=== PATIENT | male | born 1995 | race Hispanic/Latino ===

== ENCOUNTER 2018-09-23 08:57 | Emergency (ER) | payer SELFPAY ==
[2018-09-23 09:36] LABS: Absolute Monocytes 0.3 K/uL (0.1-1.3); Absolute Neutrophil 1.7 K/uL (1.8-8.0); Basophils % 0.4 % (0-1.3); Eosinophils % 2.8 % (0-4.4); Hematocrit 44.6 % (39.6-49.0); Lymphocytes % 48.3 % (15.3-44.8); MPV 10.2 fL (7.6-11.3); RBC Red Blood Cell Count 5.06 M/uL (4.33-5.43)
[2018-09-23 09:44] LABS: ALT/SGPT 21 U/L (12-78); AST/SGOT 20 U/L (15-37); Albumin 4.3 g/dL (3.4-5.0); Alkaline Phosphatase 74 U/L (45-117); BUN Blood Urea Nitrogen 15 mg/dL (7-18); Bicarbonate 27 mmol/L (21-32); Bilirubin Direct 0.1 mg/dL (0-0.2); Bilirubin Total 0.5 mg/dL (0.2-1.0); Glucose Level 99 mg/dL (74-106); Lipase 92 U/L (73-393); Potassium 4.1 mmol/L (3.5-5.1); Protein, Total 7.7 g/dL (6.4-8.2); Sodium Level 141 mmol/L (136-145)
--- NOTE | 2018-09-23 09:53 | RAD REPORT ---
EXAM DESCRIPTION: CT - Stone Protocol - 09/23/2018 9:35 am CLINICAL HISTORY: Right flank pain COMPARISON: None. TECHNIQUE: Axial 3 mm thick images were obtained without oral or IV contrast. The [id number] span s the entirety of the system including uppermost abdomen and lung bases. All CT scans are performed using dose optimization technique as appropriate and may include automated exposure control or mA/KV adjustment according to patient size. FINDINGS: No hydronephrosis is present and no obstructing ureteral calculi. No suspicious renal mass es. Isodense masses and pyelonephritis are not excluded on a stone protocol CT scan. No urinary bladd er suspicious finding. No significant adrenal finding. Phleboliths are seen along pelvic floor. Prost ate gland and seminal vesicles within normal limits. Imaged portions of the liver, spleen and pancreas show no suspicious findings on non-contrast imaging . No gallbladder or biliary tree abnormality identified. No suspicious bowel findings. Appendix is normal. Stool volume colon moderate. No hernia, mass or bulky lymphadenopathy noted. No free air, free fluid or inflammatory stranding. No significant bony abnormality. IMPRESSION: Negative CT stone protocol study. Isodense masses and pyelonephritis are not excluded on stone protocol technique.
--- NOTE | 2018-09-23 10:21 | EDPHYS ---
Physician Documentation [facility] Name: Tio Luis Age: 23 yrs Sex: Male : 1995 Arrival Date: 09/23/2018 Time: 09:01 Bed 17 Private MD: ED Physician Lokesh Jaffe HPI: 09/23 09:02 This 23 yrs old Male presents to ER via Ambulatory with complaints of jmm Abdominal Pain. 09:02 The patient presents with abdominal pain right flank. Onset: The symptoms/episode jmm began/occurred gradually, 2 month(s) ago. The symptoms do not radiate. Associated signs and symptoms: Pertinent negatives: nausea and vomiting, diarrhea. The symptoms are described as achy. This is a 23 year old male with no chronic medical conditions that presents to the ED with complaints of right flank pain for the past 2 months. Patient states bending worsens the pain as well as eating. Patient also complains of generalized joint pain after eating shellfish. Patient was evaluated by his pcp with negative jean studies. Denies fever, denies vomiting, denies diarrhea. . Historical: - Allergies: 09:12 No Known Allergies; tw2 - Home Meds: 09:12 None [Active]; tw2 - PMHx: 09:12 None; tw2 - PSHx: 09:12 None; tw2 - Immunization history:: Adult Immunizations. - Social history:: Smoking status: . - Ebola Screening: : Patient denies travel to an Ebola-affected area in the 21 days before illness onset. ROS: 09:02 Constitutional: Negative for fever, chills, and weight loss, Cardiovascular: Negative jmm for chest pain, palpitations, and edema, Respiratory: Negative for shortness of breath, cough, wheezing, and pleuritic chest pain, Abdomen/GI: Negative for abdominal pain, nausea, vomiting, diarrhea, and constipation. 09:02 Back: Positive for flank pain. 09:02 MS/extremity: Positive for pain. 09:02 All other systems are negative. Exam: 09:02 Constitutional: This is a well developed, well nourished patient who is awake, alert, jmm and in no acute distress. Head/Face: atraumatic. Eyes: EOMI, no conjunctival erythema appreciated ENT: Moist Mucus Membranes Neck: Trachea midline, Supple Chest/axilla: Normal chest wall appearance and motion. Cardiovascular: Regular rate and rhythm. No edema appreciated Respiratory: Normal respirations, no respiratory distress appreciated 09:02 Skin: General appearance color normal MS/ Extremity: Moves all extremities, no obvious deformities appreciated, no edema noted to the lower extremities Neuro: Awake and alert, normal gait Psych: Behavior is normal, Mood is normal, Patient is cooperative and pleasant 09:02 Abdomen/GI: Inspection: abdomen appears normal, Bowel sounds: normal, Palpation: abdomen is soft and non-tender, in all quadrants. 09:02 Back: CVA tenderness, that is mild. Vital Signs: 09:09 BP 147 / 100; Pulse 71; Resp 17; Temp 98.2(TE); Pulse Ox 97% on R/A; Weight 54.43 kg tw2 (R); Height 5 ft. 5 in. (165.10 cm) (R); 09:30 BP 129 / 79; Pulse 71; Resp 17; Pulse Ox 99% on R/A; tw2 09:57 BP 126 / 77; Pulse 69; Resp 17; Pulse Ox 100% on R/A; tw2 10:33 BP 122 / 80; Pulse 73; Resp 17; Pulse Ox 99% on R/A; tw2 09:09 Body Mass Index 19.97 (54.43 kg, 165.10 cm) tw2 MDM: 09:02 Patient medically screened. [facility] 10:19 Data reviewed: vital signs, nurses notes. Counseling: I had a detailed discussion with efren the patient and/or guardian regarding: the historical points, exam findings, and any diagnostic results supporting the discharge/admit diagnosis, lab results, radiology results, the need for outpatient follow up, to return to the emergency department if symptoms worsen or persist or if there are any questions or concerns that arise at home. 09/23 09:12 Order name: Basic Metabolic Panel; Complete Time: 09:55 [facility] 09/23 09:12 Order name: CBC with Diff; Complete Time: 09:45 [facility] 09/23 09:12 Order name: Creatinine for Radiology; Complete Time: 09:55 [facility] 09/23 09:12 Order name: Hepatic Function; Complete Time: 09:55 [facility] 09/23 09:12 Order name: Lipase; Complete Time: 09:55 [facility] 09/23 10:18 Order name: Urine Dipstick--Ancillary (enter results); Complete Time: 10:34 09/23 09:12 Order name: IV Saline Lock; Complete Time: 10:02 [facility] 09/23 09:12 Order name: Labs collected and sent; Complete Time: 10:02 [facility] 09/23 09:12 Order name: CT Stone Protocol; Complete Time: 10:00 [facility] 09/23 09:12 Order name: Urine Dipstick-Ancillary (obtain specimen); Complete Time: 10:23 [facility] Administered Medications: No medications were administered Disposition: 18:53 Co-signature as Attending Physician, Lokesh Jaffe MD Available for consultation at ps1 all times. . Disposition: 09/23/18 10:20 Discharged to Home. Impression: Flank Pain. - Condition is Stable. - Discharge Instructions: Flank Pain, Adult. - Prescriptions for Pepcid 20 mg Oral Tablet - take 1 tablet by ORAL route every 12 hours for 10 days; 20 tablet. - Medication Reconciliation Form, Thank You Letter, Antibiotic Education, Prescription Opioid Use, Work release form form. - Follow up: Jones Vu MD; When: 2 - 3 days; Reason: Recheck today's complaints, Continuance of care, Re-evaluation by your physician. Signatures: Dispatcher [employer] EDMS Nicolás Palmer PA PA [facility] Tanya Noriega RN RN tw2 Lokesh Jaffe MD MD ps1 Corrections: (The following items were deleted from the chart) 10:34 10:20 09/23/2018 10:20 Discharged to Home. Impression: Flank Pain. Condition is Stable. tw2 Forms are Work release form, Medication Reconciliation Form, Thank You Letter, Antibiotic Education, Prescription Opioid Use. Follow up: Jones Vu; When: 2 - 3 days; Reason: Recheck today's complaints, Continuance of care, Re-evaluation by your physician. [facility]
--- NOTE | 2018-09-23 10:21 | ER ---
Nurse's Notes [facility] Name: Tio Luis Age: 23 yrs Sex: Male : 1995 Arrival Date: 09/23/2018 Time: 09:01 Bed 17 Private MD: Diagnosis: Flank Pain Presentation: 09/23 09:07 Presenting complaint: Patient states: i have had low back pain for 2 months now, when i tw2 eat sometimes it hurts in my back and also after i eat seafood it hurts and it hurts in my joints and my knee. Transition of care: patient was not received from another setting of care. Onset of symptoms was September 23, 2018. Risk Assessment: Do you want to hurt yourself or someone else? Patient reports no desire to harm self or others. Initial Sepsis Screen: Does the patient meet any 2 criteria? No. Patient's initial sepsis screen is negative. Does the patient have a suspected source of infection? No. Patient's initial sepsis screen is negative. Care prior to arrival: None. 09:07 Method Of Arrival: Ambulatory tw2 09:07 Acuity: YING 3 tw2 Triage Assessment: 09:08 General: Appears in no apparent distress. slender, well groomed, Behavior is calm, tw2 cooperative, appropriate for age. Pain: Complains of pain in right low back. GI: Patient currently denies diarrhea, nausea, vomiting. Historical: - Allergies: 09:12 No Known Allergies; tw2 - Home Meds: 09:12 None [Active]; tw2 - PMHx: 09:12 None; tw2 - PSHx: 09:12 None; tw2 - Immunization history:: Adult Immunizations. - Social history:: Smoking status: . - Ebola Screening: : Patient denies travel to an Ebola-affected area in the 21 days before illness onset. Screenin:08 Abuse screen: Denies threats or abuse. Nutritional screening: No deficits noted. tw2 Tuberculosis screening: No symptoms or risk factors identified. Fall Risk None identified. Assessment: 09:02 General: Appears in no apparent distress. slender, well groomed, Behavior is calm, tw2 cooperative, appropriate for age. 09:59 Pain: Complains of pain in right low back. Neuro: Level of Consciousness is awake, tw2 alert, obeys commands, Oriented to person, place, time, situation. Cardiovascular: Heart tones S1 S2 Patient's skin is warm and dry. Respiratory: Airway is patent Respiratory effort is even, unlabored, Respiratory pattern is regular, symmetrical, Breath sounds are clear bilaterally. GI: Abdomen is flat, Bowel sounds present X 4 quads. Abd is soft X 4 quads. : No signs and/or symptoms were reported regarding the genitourinary system. EENT: No signs and/or symptoms were reported regarding the EENT system. Derm: No signs and/or symptoms reported regarding the dermatologic system. Musculoskeletal: Range of motion: intact in all extremities. 10:25 Reassessment: Patient appears in no apparent distress at this time. No changes from tw2 previously documented assessment. Patient and/or family updated on plan of care and expected duration. Pain level reassessed. Patient is alert, oriented x 3, equal unlabored respirations, skin warm/dry/pink. 10:33 Reassessment: Patient appears in no apparent distress at this time. No changes from tw2 previously documented assessment. Patient and/or family updated on plan of care and expected duration. Pain level reassessed. Patient is alert, oriented x 3, equal unlabored respirations, skin warm/dry/pink. Vital Signs: 09:09 BP 147 / 100; Pulse 71; Resp 17; Temp 98.2(TE); Pulse Ox 97% on R/A; Weight 54.43 kg tw2 (R); Height 5 ft. 5 in. (165.10 cm) (R); 09:30 BP 129 / 79; Pulse 71; Resp 17; Pulse Ox 99% on R/A; tw2 09:57 BP 126 / 77; Pulse 69; Resp 17; Pulse Ox 100% on R/A; tw2 10:33 BP 122 / 80; Pulse 73; Resp 17; Pulse Ox 99% on R/A; tw2 09:09 Body Mass Index 19.97 (54.43 kg, 165.10 cm) tw2 ED Course: 09:00 Nicolás Palmer PA is PHCP. [facility] 09:00 Lokesh Jaffe MD is Attending Physician. jm 09:01 Patient arrived in ED. mr 09:07 Tanya Noriega RN is Primary Nurse. tw2 09:07 Bed in low position. Call light in reach. tw2 09:08 Triage completed. tw2 09:08 Arm band placed on. tw2 09:15 Inserted saline lock: 20 gauge in right antecubital area, using aseptic technique. tw2 Blood collected. :37 CT Stone Protocol In Process Unspecified. EDMS 10:20 Jones Vu MD is Referral Physician. [facility] 10:33 No provider procedures requiring assistance completed. IV discontinued, intact, tw2 bleeding controlled, No redness/swelling at site. Pressure dressing applied. Administered Medications: No medications were administered Outcome: :20 Discharge ordered by . jmm 10:34 Discharged to home ambulatory. tw2 :34 Condition: stable :34 Discharge instructions given to patient, Instructed on discharge instructions, follow up and referral plans. medication usage, Demonstrated understanding of instructions, follow-up care, medications, Prescriptions given X 1. 10:34 Patient left the ED. tw2 Signatures: Dispatcher [employer] EDMS Nicolás Palmer PA PA jmm Rivera, Mary mr Tanya Noriega, RN RN tw2
[2018-09-23 10:28] LABS: Urine Blood NEGATIVE (NEG); Urine Glucose NEGATIVE (NEG); Urine Protein NEGATIVE (NEG); Urine Specific Gravity 1.025 (1.005-1.030); Urine pH 5.5 (5.0-7.0)
== END 2018-09-23 10:34 | disposition home or self-care (01) ==
LOC: ER 08:57
DX: R10.9 Unspecified abdominal pain (principal)
CPT/HCPCS: 36415; 74176; 76377; 80048; 80076; 81003; 83690; 85025; 99284